=== PATIENT | male | born 2000 | race Caucasian/White ===

== ENCOUNTER 2020-11-20 17:59 | Emergency (ER) | payer OTHER, SELFPAY ==
--- NOTE | ~2020-11-20 | XR_ITS ---
XR foot RT min 3V DATE: 11/20/2020 18:48 INDICATION: Fall, right ankle and foot injury, pain TECHNIQUE: 4 views COMPARISON: None FINDINGS: There is a virtually nondisplaced linear oblique intra-articular fracture of the lateral ba se of the fifth metatarsal bone. IMPRESSION: Intra-articular virtually nondisplaced linear oblique fracture of the base of the fifth m etatarsal bone Reviewed, dictated and finalized at location A. IMPRESSION: Intra-articular virtually nondisplaced linear oblique fracture of t he base of the fifth metatarsal bone
--- NOTE | ~2020-11-20 | XR_ITS ---
XR ankle RT min 3V DATE: 11/20/2020 18:48 INDICATION: Fall, right ankle and foot injury, pain TECHNIQUE: 4 views COMPARISON: None FINDINGS: There is lateral ankle soft tissue swelling. No fracture or dislocation of the ankle or dis ruption of the ankle mortise. IMPRESSION: Lateral soft tissue swelling Reviewed, dictated and finalized at location A.
[2020-11-20 18:35] VITALS: BP 139/76; PULSE 57; RESP 16; TEMP 36.3; O2SAT 100
--- NOTE | 2020-11-20 18:58 | ED.LOWEXIN ---
HPI - Extremity Injury (Lower) General Chief Complaint: Extremity Injury, Lower Stated Complaint: right foot pain Time Seen by Provider: 11/20/20 18:58 Source: patient Mode of arrival: ambulatory Limitations: no limitations History of Present Illness HPI Narrative: Bobby Miller is a 20-year-old male with PMH of depression, HTN, who comes to [facility] for x-ray of right fifth metatarsal after basketball back board fell and hit him on the right leg and foot POA Related Data Home Medications Medication Instructions Recorded Confirmed atenolol 50 mg PO DAILY 11/20/20 11/20/20 losartan 100 mg PO DAILY 11/20/20 11/20/20 paroxetine HCl 25 mg PO DAILY 11/20/20 11/20/20 Allergies Allergy/AdvReac Type Severity Reaction Status Date / Time No Known Allergies Allergy Verified 11/20/20 18:49 Review of Systems Review of Systems: Narrative: CONSTITUTIONAL: Denies fever, chills, sweats. EYES: Denies visual changes, redness, discharge. ENT: Denies rhinorrhea, congestion, sore throat, otalgia. CARDIOVASCULAR: Denies chest pain, palpitations, edema. RESPIRATORY: Denies dyspnea, wheezing, cough GASTROINTESTINAL: Denies abdominal pain, nausea, vomiting, diarrhea. GENITOURINARY: Denies dysuria, hematuria, abnormal discharge SKIN: Denies rash or itching. NEUROLOGIC: Denies numbness, or focal weakness. PSYCHIATRIC: Denies anxiety or depression. Right lateral heel and foot pain PMFSH Past Medical History Medical History (Updated 11/20/20 @ 20:00 by Rebecca Young CNP) Aortic aneurysm Marfan syndrome No acute medical problems Social History Social History (Updated 11/20/20 @ 19:00 by Rebecca Young CNP) Smoking status: Never smoker Alcohol intake: current Comments At time of signature, I agree with nursing past medical, surgical, social and family history. There is no relevant family history pertinent to the presenting complaint. Exam Narrative: Exam Narrative: GENERAL: This is a well-nourished, well-developed patient, in mild distress. HEAD: normocephalic, atraumatic. EYES: Sclera clear/white. Vision is grossly intact. EARS: External ears normal, Hearing grossly intact. NOSE: External nose normal without nasal discharge, nares without redness, no rhinorrhea. THROAT: Mucous membranes moist, NECK: Neck supple, non-tender CARDIOVASCULAR: Regular rate and rhythm without murmurs, gallops, or rubs. RESPIRATORY: Clear to auscultation. Breath sounds equal bilaterally. No wheezes, rales, or rhonchi. GASTROINTESTINAL: Abdomen soft, non-tender, SKIN: warm, intact with no suspicious lesions or rash, good texture and turgor. NEURO: awake, alert, and oriented to person, place and time. There were no obvious focal neurologic abnormalities. Steady gait EXTREMITIES: Normal range of motion. Right heel lateral pain, tenderness BACK: Nontender without deformity Course Course Emergency Course: Patient here after blackboard fell on his lateral right leg and his foot and ankle X-ray of ankle and foot shows an intra-articular virtually nondisplaced linear oblique fracture of the base of the fifth metatarsal bone Placed in Clarence wrap and postop shoe; pain medication Follow-up with orthopedics Vital Signs Vital signs: Vital Signs Temperature 97.3 F L 11/20/20 18:35 Pulse Rate 57 L 11/20/20 18:35 Respiratory Rate 16 11/20/20 18:35 Blood Pressure 139/76 11/20/20 18:35 Pulse Oximetry 100 11/20/20 18:35 Temperature 97.3 F L 11/20/20 18:35 Pulse Rate 57 L 11/20/20 18:35 Respiratory Rate 16 11/20/20 18:35 Blood Pressure 139/76 11/20/20 18:35 Pulse Oximetry 100 11/20/20 18:35 MDM - Extremity Injury (Lower) Differential Diagnosis Differential diagnosis: Likely ankle sprain and strain, fracture of toe, ankle fracture and other Critical Care Time Critical Care Time Critical Care Time: No Discharge Plan Discharge Clinical Impression: Fracture of base of fifth metatarsal bone Qualifiers:
== END 2020-11-20 19:32 | disposition home or self-care (01) ==
PROVIDERS: Emergency Provider Nurse Practitioner
DX: S92.351A Displaced fracture of fifth metatarsal bone, right foot, initial encounter for closed fracture (principal); W20.8XXA Other cause of strike by thrown, projected or falling object, initial encounter; F32.9 Major depressive disorder, single episode, unspecified; I10 Essential (primary) hypertension; Q87.40 Marfan syndrome, unspecified
CPT/HCPCS: 73610; 73630; 99204; G0463